=== PATIENT | male | born 1985 | race Caucasian/White ===

== ENCOUNTER 2019-05-24 18:27 | Emergency (ER) | payer SELFPAY ==
[~2019-05-24] VITALS: Ht 175.3 cm; Wt 98.7 kg
[~2019-05-24 18:27] MED LIST: CYCL10TA7 PO; IBUP800T48 PO
[2019-05-24 18:44] VITALS: RESP 20; Ht 175.3 cm; Wt 98.7 kg
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
[2019-05-24] MEDS ORDERED: KETOROLAC 30 MG INJ IM STA (20:20)
[2019-05-24] MEDS ORDERED: CYCLOBENZAPRINE 10 MG TAB PO ONE (20:30)
[2019-05-24 22:33] VITALS: BP 129/88; PULSE 77
== END 2019-05-24 22:34 | disposition home or self-care (01) ==
LOC: FTE 18:27
DX: S10.93XA Contusion of unspecified part of neck, initial encounter (principal); S20.219A Contusion of unspecified front wall of thorax, initial encounter; S80.02XA Contusion of left knee, initial encounter; V43.52XA Car driver injured in collision with other type car in traffic accident, initial encounter
CPT/HCPCS: 71046; 72040; 73562; 96372; 99284; J1885